=== PATIENT | male | born 1995 | race Caucasian/White ===

== ENCOUNTER 2016-09-07 21:14 | Emergency (ER) ==
--- NOTE | 2016-09-07 22:04 | PROVIDER DOCUMENTATION ---
HPI-General Adult - General Chief Complaint: General Adult Stated Complaint: NUMBNESS OF DIFFERENT AREAS Time Seen by Provider: 09/07/16 21:38 Source: patient Allergies/Adverse Reactions: Patient Allergies Allergy/AdvReac Type Severity Reaction Status Date / Time atropine sulfate * AdvReac ANAPHYLAXIS Verified 09/07/16 21:37 [From ] hyoscyamine sulfate * AdvReac ANAPHYLAXIS Verified 09/07/16 21:37 [From [facility]] phenobarbital [From [facility]] AdvReac ANAPHYLAXIS Verified 09/07/16 21:37 scopolamine hydrobromide * AdvReac ANAPHYLAXIS Verified 09/07/16 21:37 [From [facility]] Home Medications: Home Medication List Medication Instructions Recorded Confirmed Last Taken Type Colchicine 0.6 mg PO DAILY 09/07/16 09/07/16 Unknown History Febuxostat [Uloric] 40 mg PO 09/07/16 Unknown History Indomethacin [Indocin] 50 mg PO DAILY 09/07/16 09/07/16 Unknown History Irbesartan/Hydrochlorothiazide 300 mg PO DAILY 09/07/16 09/07/16 Unknown History [Irbesartan-Hctz 300-12.5 mg Tb] Linagliptin/Metformin HCl 09/07/16 Unknown History [Jentadueto 2.5 mg-1000 mg Tab] Pitavastatin Calcium [Livalo] 4 mg PO DAILY 09/07/16 09/07/16 Unknown History - History of Present Illness -Gen Adult Nature of Presenting Problems: Pt. is 20 yom that presents with multiple complaints. Pt. reports he has been having lower back pain and left hip pain. Pt. reports Numbness in all extremities and states his left leg is weaker than his right. Pt. reports he thinks something is wrong inside of him. Pt. states "I need to know what's wrong". Location of Pain/Injury: reports: back, pelvis. denies: head, face, mouth, neck , chest, upper extremity, hand(s), abdomen, genitalia, lower extremity, feet, upper body, lower body, generalized Pain Radiation: reports: no radiation Quality of Pain: reports: aching. denies: burning, cramping, dull, fullness, indigestion, pressure, sharp, stabbing, tearing, throbbing, tightness Severity: reports: mild. denies: moderate, severe Onset/Duration: reports: gradual, other (6 months) Timing: reports: still present. denies: improving, gone now, resolved prior to arrival, intermittent, constant, changing over time, getting worse Context/Activities at Onset: reports: none. denies: recent emotional stress, recent physical stress, recent trauma history, possible bad food, cold exposure , out of country travel Modifying Factors: improves with: nothing Associated Symptoms: reports: back/neck pain, joint pain (Left hip). denies: anxiety, arm pain, chest pain, constipation, cough, diaphoresis, diarrhea, dizziness, EENT symptoms, fatigue, fever/chills, genitourinary problems, headaches, heartburn, loss of appetite, malaise, muscle aches, sinus congestion/ drainage, nausea, rash, seizure, shortness of breath, sensory/motor loss, pain with inspiration, swelling/mass in abdomen, syncope, vomiting, weakness, trouble walking Similar Symptoms Previously?: Yes Recently seen or treated by another doctor?: No Review of Systems - Adult - REVIEW OF SYSTEMS - ADULT Constitutional: reports: see HPI. denies: chills, fever, fatique Eyes: reports: see HPI. denies: discharge, blurred vision, double vision Ears, Nose, Mouth & Throat: reports: see HPI. denies: ear pain, hearing loss, sinus problem, nose pain, loose teeth, mouth/dental pain, throat pain, throat swelling Cardiovascular: reports: see HPI. denies: chest pain, edema, irregular heart rate, orthopnea, palpitations, syncope Respiratory: reports: see HPI. denies: chronic cough, cough, dyspnea on exertion, pleurisy, shortness of breath, wheezing Gastrointestinal: reports: see HPI. denies: abdominal pain, hematemesis, diarrhea, nausea, vomiting Genitourinary: reports: see HPI. denies: dysuria, discharge, flank pain, hematuria, hesitency, urgency Musculoskeletal: reports: see HPI, bone pain, back pain, joint pain. denies: joint swelling, muscle aches, neck pain Integumentary: reports: see HPI. denies: hives, itching, rash, skin thickening Neurological: reports: see HPI, numbness (All extremities). denies: ataxia, headache/migraines, seizure, syncope, tremors Psychiatric: reports: see HPI. denies: anxiety, depression, emotional problems , insomnia, panic attacks, suicidal thoughts Past History - Adult - PAST MEDICAL HISTORY-ADULT Review of Records: reports: Old Records Reviewed, Nursing Assessment Review, Medications Reviewed, Social history reviewed & non-contributory. - IMMUNIZATION STATUS Childhood Immunizations: See Nurse Assessment Flu Vaccine: See Nurse Assessment - FAMILY HISTORY Family History: reviewed, not pertinent - SOCIAL HISTORY Smoking: non-smoker Physical Exam-General - PHYSICAL EXAM-ADULT Initial Vital Signs Reviewed: Yes - CONSTITUTIONAL General Appearance: alert, mild distress, thin. negative: obese, anxious, lethargic, slow to respond, obtunded, combative - EYES Eyes: PERRL/EOMI, pink conjunctivae. negative: conjuctival exudate, scleral icterus, subconjunctival hemorrhage - HEAD, EARS, NOSE, MOUTH & THROAT HENMT: normocephalic/atraumatic, moist mucous membranes. negative: angioedema, frontal tenderness, maxillary tenderness - NECK Neck: non-tender, full range of motion, supple, normal inspection. negative: lymphadenopathy, trachial deviation, thyromegaly - RESPIRATORY Respiratory: lungs clear, normal breath sounds. negative: crackles, rales, rhonchi, stridor, wheezing - CARDIOVASCULAR Cardiovascular: normal peripheral pulses, regular rate, rhythm, no edema, no JVD , no murmur. negative: extra beats, friction rub, irregularly irregular - CHEST (BREASTS) Chest/Breast: deferred - GASTROINTESTINAL (ABDOMEN) Abdominal Exam: normal bowel sounds, non tender, soft. negative: distended, guarding, rigid, rebound, tenderness, hernia, mass - GENITOURINARY Male Genitalia: deferred Rectal Exam: deferred Hemoccult Exam: deferred - LYMPHATIC Lymphatic: no adenopathy. negative: axilla node tender, cervical node tenderness - MUSCULOSKELETAL Back Exam: normal inspection, no CVA tenderness, no vertebral tenderness. negative: ecchymosis, swelling, vertebral tenderness Extremity: normal range of motion, non-tender, normal gait, normal inspection. negative: deformity, erythema, inflammation, swelling, tenderness Peripheral Pulses: radial (R): 2+, radial (L): 2+ - SKIN Integumentary: normal color, normal turgor, warm/dry. negative: cyanosis, diaphoresis, ecchymosis, erythema, jaundice, mottled, pallor, petechiae, purpura , rash, swelling, tenderness - NEUROLOGIC Neurologic: grossly normal, no motor/sensory deficits, motor weakness (Left leg) , sensory deficit (Numbness in all extremities). negative: aphasia, facial droop, focal weakness - PSYCHIATRIC Psych/Mental Status: normal mood/affect, normal thought content, normal thought process, oriented x 3. negative: anxious, paranoid, tearful Progress - PLAN OF CARE/RESULTS Progress/Plan/Lab Results: Discussed results and plan of care with patient. patient agrees with plan and verbalizes understanding. Vital Signs Temp Pulse Resp BP Pulse Ox 09/07/16 21:32 98 F 67 18 164/77 100 atropine sulfate * [From ] Adverse Reaction (Verified 09/07/16 21:37) ANAPHYLAXIS hyoscyamine sulfate * [From ] Adverse Reaction (Verified 09/07/16 21:37) ANAPHYLAXIS phenobarbital [From ] Adverse Reaction (Verified 09/07/16 21:37) ANAPHYLAXIS scopolamine hydrobromide * [From ] Adverse Reaction (Verified 09/07/16 21:37) ANAPHYLAXIS Colchicine 0.6 mg PO DAILY 09/07/16 Febuxostat [Uloric] 40 mg PO 09/07/16 Indomethacin [Indocin] 50 mg PO DAILY 09/07/16 Irbesartan/Hydrochlorothiazide [Irbesartan-Hctz 300-12.5 mg Tb] 300 mg PO DAILY 09/07/16 Linagliptin/Metformin HCl [Jentadueto 2.5 mg-1000 mg Tab] 09/07/16 Pitavastatin Calcium [Livalo] 4 mg PO DAILY 09/07/16 Laboratory 09/07/16 09/07/16 09/07/16 22:45 22:00 21:55 WBC 6.61 RBC 4.75 Hgb 14.5 Hct 41.1 L MCV 86.5 MCH 30.5 MCHC 35.3 RDW Std Deviation 12.8 Plt Count 229 MPV 11.8 H Immature Gran % (Auto) 0.2 Neut % (Auto) 52.1 Lymph % (Auto) 37.8 [place] % (Auto) 8.3 Eos % (Auto) 1.1 Baso % (Auto) 0.5 Immature Gran # (Auto) 0.01 Neut # (Auto) 3.45 Lymph # (Auto) 2.50 [place] # (Auto) 0.55 Eos # (Auto) 0.07 Baso # (Auto) 0.03 Sodium 139 Potassium 3.8 Chloride 103 Carbon Dioxide 27 Anion Gap 9 BUN 12 Creatinine 1.2 Estimated GFR/1.73 m2 > 60 BUN/Creatinine Ratio 10 Glucose 100 Calculated Osmolality 277 Calcium 9.3 Total Bilirubin 0.60 AST 31 ALT 57 H Alkaline Phosphatase 60 Creatine Kinase 168 Total Protein 6.8 Albumin 4.8 Globulin 2.0 Albumin/Globulin Ratio 2.0 Urine Source Urine Color Urine Clarity Urine pH Ur Specific [place] Urine Protein Urine Ketones Urine Blood Urine Nitrite Urine Bilirubin Urine Urobilinogen Urine Microscopic RBC Urine WBC Urine Microscopic WBC Ur Epithelial Cells Urine Bacteria Urine Glucose Urine Opiates Screen NONE DETECTED Ur Oxycodone Screen NONE DETECTED Urine Methadone Screen NONE DETECTED Ur Barbituates Screen NONE DETECTED Ur Tricyclics Screen NONE DETECTED Ur Phencyclidine Scrn NONE DETECTED Ur Amphetamines Screen NONE DETECTED U Methamphetamines Scrn NONE DETECTED Urine MDMA Screen NONE DETECTED U Benzodiazepines Scrn NONE DETECTED Urine Cocaine Screen NONE DETECTED U Cannabinoids Screen NONE DETECTED 09/07/16 21:55 WBC RBC Hgb Hct MCV MCH MCHC RDW Std Deviation Plt Count MPV Immature Gran % (Auto) Neut % (Auto) Lymph % (Auto) [place] % (Auto) Eos % (Auto) Baso % (Auto) Immature Gran # (Auto) Neut # (Auto) Lymph # (Auto) [place] # (Auto) Eos # (Auto) Baso # (Auto) Sodium Potassium Chloride Carbon Dioxide Anion Gap BUN Creatinine Estimated GFR/1.73 m2 BUN/Creatinine Ratio Glucose Calculated Osmolality Calcium Total Bilirubin AST ALT Alkaline Phosphatase Creatine Kinase Total Protein Albumin Globulin Albumin/Globulin Ratio Urine Source CLEAN CATCH Urine Color YELLOW Urine Clarity CLEAR Urine pH 6.0 Ur Specific [place] 1.020 Urine Protein NEGATIVE Urine Ketones TRACE Urine Blood NEGATIVE Urine Nitrite NEGATIVE Urine Bilirubin NEGATIVE Urine Urobilinogen 4+(12 mg/dL) Urine Microscopic RBC <10 Urine WBC TRACE A Urine Microscopic WBC <10 Ur Epithelial Cells <10 Urine Bacteria 2+ Urine Glucose NEGATIVE Urine Opiates Screen Ur Oxycodone Screen Urine Methadone Screen Ur Barbituates Screen Ur Tricyclics Screen Ur Phencyclidine Scrn Ur Amphetamines Screen U Methamphetamines Scrn Urine MDMA Screen U Benzodiazepines Scrn Urine Cocaine Screen U Cannabinoids Screen Orders Category Date Time Status Saline Loc NOW Care 09/07/16 21:53 Active LUMBAR SPINE W/O CONTRAST [CT] Stat Exams 09/07/16 Taken PELVIS W/O CONTRAST [CT] Stat Exams 09/07/16 21:54 Taken CBC WITH ELECTRONIC DIFF [HEME] Stat Lab 09/07/16 22:00 Completed CK PROFILE [SP CHEM] Stat Lab 09/07/16 22:45 Completed COMPREHENSIVE METABOLIC PANEL [CHEM] Stat Lab 09/07/16 22:45 Completed UDS [URINE DRUG SCREEN PL] Stat Lab 09/07/16 21:[address] [URINALYSIS] Stat Lab 09/07/16 21:55 Completed URINE MICROSCOPIC [URINALYSIS] Stat Lab 09/07/16 21:55 Completed Laboratory Tests 09/07/16 09/07/16 09/07/16 21:55 21:55 22:00 WBC 6.61 RBC 4.75 Hgb 14.5 Hct 41.1 L MCV 86.5 MCH 30.5 MCHC 35.3 RDW Std Deviation 12.8 Plt Count 229 MPV 11.8 H Immature Gran % (Auto) 0.2 Neut % (Auto) 52.1 Lymph % (Auto) 37.8 [place] % (Auto) 8.3 Eos % (Auto) 1.1 Baso % (Auto) 0.5 Immature Gran # (Auto) 0.01 Neut # (Auto) 3.45 Lymph # (Auto) 2.50 [place] # (Auto) 0.55 Eos # (Auto) 0.07 Baso # (Auto) 0.03 Sodium Potassium Chloride Carbon Dioxide Anion Gap BUN Creatinine Estimated GFR/1.73 m2 BUN/Creatinine Ratio Glucose Calculated Osmolality Calcium Total Bilirubin AST ALT Alkaline Phosphatase Creatine Kinase Total Protein Albumin Globulin Albumin/Globulin Ratio Urine Source CLEAN CATCH Urine Color YELLOW Urine Clarity CLEAR Urine pH 6.0 Ur Specific [place] 1.020 Urine Protein NEGATIVE Urine Ketones TRACE Urine Blood NEGATIVE Urine Nitrite NEGATIVE Urine Bilirubin NEGATIVE Urine Urobilinogen 4+(12 mg/dL) Urine Microscopic RBC <10 Urine WBC TRACE A Urine Microscopic WBC <10 Ur Epithelial Cells <10 Urine Bacteria 2+ Urine Glucose NEGATIVE Urine Opiates Screen NONE DETECTED Ur Oxycodone Screen NONE DETECTED Urine Methadone Screen NONE DETECTED Ur Barbituates Screen NONE DETECTED Ur Tricyclics Screen NONE DETECTED Ur Phencyclidine Scrn NONE DETECTED Ur Amphetamines Screen NONE DETECTED U Methamphetamines Scrn NONE DETECTED Urine MDMA Screen NONE DETECTED U Benzodiazepines Scrn NONE DETECTED Urine Cocaine Screen NONE DETECTED U Cannabinoids Screen NONE DETECTED 09/07/16 22:45 WBC RBC Hgb Hct MCV MCH MCHC RDW Std Deviation Plt Count MPV Immature Gran % (Auto) Neut % (Auto) Lymph % (Auto) [place] % (Auto) Eos % (Auto) Baso % (Auto) Immature Gran # (Auto) Neut # (Auto) Lymph # (Auto) [place] # (Auto) Eos # (Auto) Baso # (Auto) Sodium 139 Potassium 3.8 Chloride 103 Carbon Dioxide 27 Anion Gap 9 BUN 12 Creatinine 1.2 Estimated GFR/1.73 m2 > 60 BUN/Creatinine Ratio 10 Glucose 100 Calculated Osmolality 277 Calcium 9.3 Total Bilirubin 0.60 AST 31 ALT 57 H Alkaline Phosphatase 60 Creatine Kinase 168 Total Protein 6.8 Albumin 4.8 Globulin 2.0 Albumin/Globulin Ratio 2.0 Urine Source Urine Color Urine Clarity Urine pH Ur Specific [place] Urine Protein Urine Ketones Urine Blood Urine Nitrite Urine Bilirubin Urine Urobilinogen Urine Microscopic RBC Urine WBC Urine Microscopic WBC Ur Epithelial Cells Urine Bacteria Urine Glucose Urine Opiates Screen Ur Oxycodone Screen Urine Methadone Screen Ur Barbituates Screen Ur Tricyclics Screen Ur Phencyclidine Scrn Ur Amphetamines Screen U Methamphetamines Scrn Urine MDMA Screen U Benzodiazepines Scrn Urine Cocaine Screen U Cannabinoids Screen - CT/MRI 1 CT Study: Lumbar Spine (No Fx, good alignment, Bony spinal stenosis at L3-L4 ( [place])), Pelvis (No Fx or dislocation, No arthritis ([place])) CT Results: See note Departure - Departure Time of Disposition Order: 23:13 DIAGNOSIS: Neuropathy Lumbago with sciatica Qualifiers: Chronicity: acute Back pain laterality: bilateral Sciatica laterality: bilateral sciatica Qualified Code(s): M54.42 - Lumbago with sciatica, left side Disposition: HOME 01 Certified Medical Emergency: Emergent Condition: Stable Additional Instructions: Follow up with primary care physician Return to ED for any concerns or worsening of symptoms ED Follow Up Instructions: You have been treated by a care provider in the Emergency Department. These instructions are being provided to you so you can have an understanding of how to care for yourself upon discharge. Upon discharge from the Emergency Department, you are responsible for making arrangements for follow-up care by a physician of your choice. Take all prescribed medications as directed. Return to the Emergency Department immediately for any new or worsening symptoms. You may call the Physician Referral phone number at [phone] to obtain a list of Physicians who are taking new patients. Referrals: Nelson Myers [Primary Care Provider] - Attestation - Physician/ COURTNEY Attestation Patient care was provided by Advanced Practice Provider:: Yes Advanced Practice Provider:: Ran Goldman Advanced Practice Provider documentation review:: The Mid-level provider documentation, treatment plan and medical decision making was reviewed by the physician who agrees with all treatment and medical decision making by the MLP.
[2016-09-07 22:13] LABS: MANUAL DIFF NEEDED? NO
[2016-09-07 22:13] LABS: URINE SOURCE CLEAN CATCH
[2016-09-07 22:23] LABS: BILIRUBIN URINE NEGATIVE (NEGATIVE); BLOOD URINE NEGATIVE (NEGATIVE); CLARITY CLEAR (CLEAR); COLOR YELLOW; GLUCOSE URINE NEGATIVE (NEGATIVE); LEUKOCYTES URINE TRACE (NEGATIVE); NITRITE URINE NEGATIVE (NEGATIVE); PROTEIN URINE NEGATIVE (NEGATIVE); URINE MICROSCOPIC NEEDED? YES; UROBILINOGEN URINE 4+(12 mg/dL)
[2016-09-07 22:28] LABS: EOS# 0.07 X1000 (0.0-0.7); IMM GRAN# 0.01 X1000 (0.0-0.04)
[2016-09-07 22:32] LABS: UR AMPHETAMINES QUAL NONE DETECTED (NONE DETECT); UR BARBITUATES QUAL NONE DETECTED (NONE DETECT); UR BENZODIAZEPIN QUAL NONE DETECTED (NONE DETECT); UR CANNABINOIDS QUAL NONE DETECTED (NONE DETECT); UR COCAINE QUAL NONE DETECTED (NONE DETECT); UR MDMA QUAL NONE DETECTED (NONE DETECT); UR METHADONE QUAL NONE DETECTED (NONE DETECT); UR METHAMPHETAMINE QUAL NONE DETECTED (NONE DETECT); UR OPIATES QUAL NONE DETECTED (NONE DETECT); UR OXYCODONE QUAL NONE DETECTED (NONE DETECT); UR PCP QUAL NONE DETECTED (NONE DETECT); UR TCA QUAL NONE DETECTED (NONE DETECT)
[2016-09-07 22:34] LABS: URINE EPITHELIAL CELLS <10 /HPF (<10); URINE RBC <10 /HPF (<10); URINE WBC <10 /HPF (<10)
[2016-09-07 22:58] LABS: BASO% 0.5 % (0.0-0.8); EOS% 1.1 % (0.0-10.0); HEMATOCRIT 41.1 % (42.0-52.0); HEMOGLOBIN 14.5 g/dL (14.0-18.0); IMM GRAN% 0.2 % (0.0-0.5); LYMPH% 37.8 % (20.5-51.1); MCH 30.5 PG (27-31); MCHC 35.3 g/dL (33-37); MCV 86.5 FL (81-99); MONO# 0.55 X1000 (0.11-0.59); MONO% 8.3 % (1.7-9.3); MPV 11.8 FL (7.4-10.4); NEUT% 52.1 % (42.2-75.2); PLT 229 X1000 (130-400); RBC 4.75 XMIL (4.7-6.1)
[2016-09-07 23:10] LABS: AGAP 9; ALBUMIN 4.8 g/dL (3.5-5.0); ALKALINE PHOSPHATASE 60 U/L (32-122); BUN 12 mg/dL (8-22); CALCIUM 9.3 mg/dL (8.8-10.2); CHLORIDE 103 mmol/L (98-107); CK PROFILE 168 U/L (24-204); COSMO 277; GOT 31 U/L (10-34); GPT 57 U/L (10-44); POTASSIUM 3.8 mmol/L (3.5-5.1); SODIUM 139 mmol/L (136-145); TCO2 27 mmol/L (25-35); TOTAL PROTEIN 6.8 g/dL (6.3-8.3)
[2016-09-07] MEDS ORDERED: TORADOL IV ONE (23:13)
[2016-09-07] MEDS ORDERED: SOLU-MEDROL IV ONE (23:14)
[2016-09-07] MEDS ORDERED: NORFLEX IV ONE (23:14)
[2016-09-07] MEDS ORDERED: SEPTRA DS PO ONE (23:15)
[2016-09-07] MEDS ORDERED: SEPTRA DS ONE (23:16)
[2016-09-07 23:36] VITALS: BP 136/78
--- NOTE | 2016-09-08 10:52 | Diag Imaging Result Document ---
PROCEDURE NAME: LUMBAR SPINE W/O CONTRAST - 09/07/2016 CT OF THE LUMBAR SPINE: FINDINGS: There are subchondral cysts present in the lower facet on the right at the L3 level. There is no evidence of subluxation. The vertebral bodies are not fractured. There is a cleft in the left facet at L3 which may be chronic. Otherwise, there is no evidence of fracture. There is some disk bulge at the L3-4 and L4-5 levels. There are no previous studies. 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 Mild degenerative disk disease. The possibility of mild spinal stenosis due to disk bulge at the L3-4 level cannot be excluded.
--- NOTE | 2016-09-08 10:54 | Diag Imaging Result Document ---
PROCEDURE NAME: PELVIS W/O CONTRAST - 09/07/2016 CT OF THE BONY PELVIS: FINDINGS: There are some calcifications adjacent to the lesser trochanters at the muscular insertions. This is probably due to chronic stress-related change. No evidence of acute fracture or dislocation is present. No other definite bony abnormalities are present. IMPRESSION: No evidence of acute disease.
== END 2016-09-07 23:35 | disposition home or self-care (01) ==
LOC: P.ED 21:14
DX: G62.9 Polyneuropathy, unspecified (principal); M54.42 Lumbago with sciatica, left side; R20.0 Anesthesia of skin; M54.5 Low back pain; M25.552 Pain in left hip; Z79.899 Other long term (current) drug therapy
CPT/HCPCS: 72131; 72192; 80053; 80305; 81001; 82550; 85025; 96374; 96375; J1885; J2360; J2930